=== PATIENT | female | born 1970 | race Asian ===

== ENCOUNTER 2018-10-18 06:34 | Day surgery (SDC) | payer OTHER ==
[~2018-10-18 06:34] MED LIST: Buffered Lidocaine 1% SYRIN* 1 ML/SYRINGE INTRADERM ONE; Lactated Ringers 1000 ML Bag* 1,000 ML IV SCH
[2018-10-18] MEDS ORDERED: Midazolam* 1 MG/ML 2 ML VIAL (2 MG) ONE (09:04)
[2018-10-18] MEDS ORDERED: fentaNYL* 50 MCG/ML 2 ML VIAL (100 MCG VIAL) ONE ×2 (09:18→10:13)
[2018-10-18] MEDS ORDERED: Dexamethasone IV* 4 MG/ML 1 ML (4 MG) ONE (09:23)
[2018-10-18] MEDS ORDERED: Propofol* 10 MG/ML 20 ML BTL ONE (09:24)
[2018-10-18] MEDS ORDERED: Ondansetron INJ* 2 MG/ML VIAL ONE (09:46)
[2018-10-18] MEDS ORDERED: fentaNYL* 50 MCG/ML 2 ML VIAL (100 MCG VIAL) IV PRN (10:09)
[2018-10-18] MEDS ORDERED: Ondansetron INJ* 2 MG/ML VIAL IV PRN (10:09)
[2018-10-18] MEDS ORDERED: oxyCODONE/Acetamin 5/325 MG* TAB PO PRN (10:09)
[2018-10-18] MEDS ORDERED: Naloxone* 0.4 MG/ML 1 ML VIAL IV PRN (10:09)
[2018-10-18] MEDS ORDERED: oxyCODONE/Acetamin 5/325 MG* TAB ONE (10:14)
[2018-10-18] MEDS ORDERED: Ketorolac INJ* 30 MG/ML 1 ML VIAL ONE (10:21)
[2018-10-18 11:09] VITALS: BP 122/82
== END 2018-10-18 11:09 | disposition home or self-care (01) ==
LOC: OR 06:34
PROVIDERS: ATTEND Obstetrics & Gynecology
DX: N84.0 Polyp of corpus uteri (principal); R93.89 Abnormal findings on diagnostic imaging of other specified body structures; Z85.850 Personal history of malignant neoplasm of thyroid
CPT/HCPCS: 81025; 88305; A9270-GY; J1100; J1885; J2250; J2405; J2704; J3010